=== PATIENT | female | born 1940 | race Caucasian/White ===

== ENCOUNTER 2019-07-30 20:14 | Observation (INO) ==
[2019-07-30] MEDS ORDERED: NITROGLYCERIN 2% OINT 1 INCH/GM PACK TOP STA (20:49)
[2019-07-30] MEDS ORDERED: MORPHINE 4 MG/1 ML VIAL IV STA (20:49)
[2019-07-30] MEDS ORDERED: ASPIRIN 325 MG TABLET PO STA (20:49)
[2019-07-30] MEDS ORDERED: ONDANSETRON 4 MG/2 ML VIAL IV STA (20:49)
[2019-07-30 20:59] LABS: Basophils % 0.5 % (0.0-0.8); Eosinophils # 0.1 10*3/uL (0.0-0.87); Eosinophils % 1.8 % (0.00-10.9); Hemoglobin 12.6 GM/DL (12.0-16.0); Immature Granulocytes % 0.2 %; Immature Granulocytes Absolute 0.01 #; Lymphocytes # 1.7 10*3/uL (1.4-4.0); Lymphocytes % 28.4 % (21.3-54.2); Mean Corpuscular HGB Conc 32.3 GM/DL (32-36); Mean Platelet Volume 10.7 FL (9.6-12.0); Monocytes % 7.5 % (1.7-12.7); Neutrophils % 61.6 % (38.7-73.9); Platelet Count 228 T/CUMM (130-400); Red Blood Count 3.94 MC/CUMM (3.8-5.5); Red Cell Distribution Width 14.3 % (9.3-17.3)
[2019-07-30 21:06] LABS: PT Patient Result 10.6 SECS (9.6-12.2)
[2019-07-30 21:20] LABS: Alanine Aminotransferase 9 U/L (13-56); Albumin 3.4 G/DL (3.4-5.0); Alkaline Phosphatase 125 U/L (45-117); Aspartate Amino Transferase < 3 U/L (0-37); Blood Urea Nitrogen 18 MG/DL (7-18); Calcium 8.9 MG/DL (8.5-10.1); Estimated Glom Filtration Rate 81 ML/MIN; Glucose 103 MG/DL (74-106); Osmolality,Calculated 280.4 MOS/KG (273-304); Total Protein 6.5 G/DL (6.4-8.3)
[2019-07-30] MEDS ORDERED: MORPHINE 4 MG/1 ML VIAL IV PRN (22:28)
[2019-07-30] MEDS ORDERED: ONDANSETRON 4 MG/2 ML VIAL IV PRN (22:28)
[2019-07-30] MEDS ORDERED: ENOXAPARIN 40 MG/0.4 ML SYRINGE SUBCUT SCH (22:30)
[2019-07-30 23:10] LABS: Risk Ratio 3.7; VLDL CHOLESTEROL 33.2 MG/DL
[2019-07-31] MEDS: NITROGLYCERIN 2% OINT 1 INCH/GM PACK TOP SCH ×3 (00:32→12:32)
[2019-07-31] MEDS: dilTIAZem Drip 125 MG/125 ML PREMIX IV SCH (01:14)
[2019-07-31] MEDS ORDERED: ASPIRIN EC 325 MG TABLET PO SCH (09:00)
[2019-07-31] MEDS: METOPROLOL SUCCINATE XL 50 MG TABLET PO SCH (12:32)
[2019-07-31] MEDS: ENOXAPARIN 60 MG/0.6 ML SYRINGE SUBCUT SCH (15:23)
[2019-07-31] MEDS ORDERED: ATORVASTATIN 40 MG TABLET PO SCH (21:00)
[2019-08-01] MEDS: ENOXAPARIN 60 MG/0.6 ML SYRINGE SUBCUT SCH (03:31)
[2019-08-01] MEDS: dilTIAZem Drip 125 MG/125 ML PREMIX IV SCH (08:50)
[2019-08-01] MEDS: METOPROLOL SUCCINATE XL 50 MG TABLET PO SCH (08:51)
[2019-08-01] MEDS ORDERED: ASPIRIN EC 81 MG TABLET PO SCH (09:00)
[2019-08-01 12:10] VITALS: BP 136/69
== END 2019-08-01 13:30 | disposition home health service (06) ==
LOC: EDUNIT# → EDBD → N.EDINP 20:14 → N.ED 20:14 → N.TELEN 22:49
PROVIDERS: ADMIT Internal Medicine; ATTEND Internal Medicine

== ENCOUNTER 2020-10-29 11:37 | Inpatient (IN) ==
[2020-10-29 12:39] LABS: Basophils % 0.3 % (0.0-0.8); Eosinophils % 0.3 % (0.00-10.9); Hemoglobin 13.6 GM/DL (12.0-16.0); Immature Granulocytes % 0.4 %; Immature Granulocytes Absolute 0.04 #; Lymphocytes # 0.8 10*3/uL (1.4-4.0); Lymphocytes % 8.6 % (21.3-54.2); Mean Corpuscular HGB Conc 32.4 GM/DL (32-36); Mean Corpuscular Volume 100.5 FL (87-102); Mean Platelet Volume 11.1 FL (9.6-12.0); Monocytes % 6.6 % (1.7-12.7); Neutrophils % 83.8 % (38.7-73.9); Platelet Count 246 T/CUMM (130-400); Red Blood Count 4.18 MC/CUMM (3.8-5.5); White Blood Count 9.3 T/CUMM (4-12)
[2020-10-29 13:05] LABS: Bilirubin,Total 1.1 MG/DL (0.2-1.0); Calcium 9.6 MG/DL (8.5-10.1); Osmolality,Calculated 281.7 MOS/KG (273-304); Potassium 4.2 MMOL/L (3.5-5.1); Total Protein 6.3 G/DL (6.4-8.3)
[2020-10-29] MEDS ORDERED: DEXTROSE 50% 25 GM/50 ML VIAL IV PRN (14:24)
[2020-10-29] MEDS ORDERED: GLUCAGON 1 MG VIAL IM PRN (14:24)
[2020-10-29] MEDS ORDERED: LORazepam 0.5 MG TABLET PO PRN (14:24)
[2020-10-29] MEDS ORDERED: cefTRIAXone 1,000 MG VIAL IM STA (14:30)
[2020-10-29] MEDS: DEXTROSE 5% NACL 0.45% 1,000 ML IV SCH (16:05)
[2020-10-29] MEDS: ENOXAPARIN 40 MG/0.4 ML SYRINGE SUBCUT SCH (16:05)
[2020-10-29 16:08] LABS: Bilirubin,Urine Negative (Negative); Blood, Urine Negative (Negative); Glucose,Urine (UA) 50 mg/dL (Negative); Ketones,Urine 20 mg/dL (Negative); Mucus,Urine Many /LPF (Occasional); Nitrite,Urine Negative (Negative); Protein,Urine 30 MG/DL; RBC,Urine 31 /HPF (0-4); Squamous Epithelial Cell,Urine Occasional /HPF (0-10); Urine Appearance CLEAR (Clear); Urine Color Amber (Yellow); Urine Specific Gravity 1.032 (1.001-1.035); Urine Urobilinogen < 2.0 EU/DL (0.2-1.0); WBC,Urine 2 /HPF (0-6)
[2020-10-29] MEDS: GABAPENTIN 100 MG CAPSULE PO SCH (17:14)
[2020-10-29] MEDS: CARBIDOPA/LEVODOPA 25-100 MG TABLET PO SCH ×3 (18:00→23:01)
[2020-10-29] MEDS ORDERED: METOPROLOL SUCCINATE XL 50 MG TABLET PO SCH (18:30)
[2020-10-29] MEDS: QUEtiapine 25 MG TABLET PO SCH (20:58)
[2020-10-29] MEDS: ALPRAZolam 0.25 MG TABLET PO SCH (20:58)
[2020-10-30] MEDS: DEXTROSE 5% NACL 0.45% 1,000 ML IV SCH ×2 (06:07→19:08)
[2020-10-30 06:08] LABS: Basophils % 0.3 % (0.0-0.8); Eosinophils # 0.1 10*3/uL (0.0-0.87); Eosinophils % 1.6 % (0.00-10.9); Hematocrit 37.4 VOL% (35.7-47.0); Hemoglobin 12.2 GM/DL (12.0-16.0); Immature Granulocytes % 0.3 %; Immature Granulocytes Absolute 0.02 #; Lymphocytes # 1.2 10*3/uL (1.4-4.0); Lymphocytes % 16.9 % (21.3-54.2); Mean Corpuscular HGB Conc 32.6 GM/DL (32-36); Mean Corpuscular Volume 100.3 FL (87-102); Mean Platelet Volume 11.9 FL (9.6-12.0); Monocytes % 8.2 % (1.7-12.7); Neutrophils % 72.7 % (38.7-73.9); Platelet Count 200 T/CUMM (130-400); Red Blood Count 3.73 MC/CUMM (3.8-5.5); Red Cell Distribution Width 13.9 % (9.3-17.3); White Blood Count 6.9 T/CUMM (4-12)
[2020-10-30] MEDS: CARBIDOPA/LEVODOPA 25-100 MG TABLET PO SCH ×5 (06:19→22:34)
[2020-10-30] MEDS: GABAPENTIN 100 MG CAPSULE PO SCH ×3 (06:19→18:43)
[2020-10-30 06:38] LABS: Calcium 8.8 MG/DL (8.5-10.1); Osmolality,Calculated 285.4 MOS/KG (273-304); Potassium 3.2 MMOL/L (3.5-5.1); Thyroid Stimulating Hormone 0.787 uIU/ml (0.358-3.74)
[2020-10-30] MEDS: QUEtiapine 25 MG TABLET PO SCH ×2 (09:59→22:34)
[2020-10-30] MEDS: ALPRAZolam 0.25 MG TABLET PO SCH ×2 (09:59→22:34)
[2020-10-30] MEDS: ASPIRIN EC 81 MG TABLET PO SCH (09:59)
[2020-10-30] MEDS: CLOPIDOGREL 75 MG TABLET PO SCH (09:59)
[2020-10-30] MEDS: POTASSIUM CHLORIDE RIDER 10 MEQ in PREMIX 1 EACH IV PRN ×4 (10:17→13:30)
[2020-10-30] MEDS: ENOXAPARIN 40 MG/0.4 ML SYRINGE SUBCUT SCH (14:31)
[2020-10-30] MEDS: METOPROLOL TARTRATE 25 MG TABLET PO SCH (22:33)
[2020-10-31] MEDS: CARBIDOPA/LEVODOPA 25-100 MG TABLET PO SCH ×6 (03:23→20:46)
[2020-10-31] MEDS: GABAPENTIN 100 MG CAPSULE PO SCH ×3 (05:55→15:14)
[2020-10-31 06:11] LABS: Calcium 8.5 MG/DL (8.5-10.1); Osmolality,Calculated 279.8 MOS/KG (273-304); Potassium 3.5 MMOL/L (3.5-5.1)
[2020-10-31 07:42] LABS: Basophils % 0.2 % (0.0-0.8); Eosinophils # 0.1 10*3/uL (0.0-0.87); Eosinophils % 1.1 % (0.00-10.9); Hematocrit 37.3 VOL% (35.7-47.0); Immature Granulocytes % 0.3 %; Immature Granulocytes Absolute 0.03 #; Lymphocytes # 0.8 10*3/uL (1.4-4.0); Lymphocytes % 8.9 % (21.3-54.2); Mean Corpuscular HGB Conc 32.2 GM/DL (32-36); Mean Corpuscular Volume 101.1 FL (87-102); Mean Platelet Volume 12.7 FL (9.6-12.0); Monocytes % 4.7 % (1.7-12.7); Neutrophils % 84.8 % (38.7-73.9); Platelet Count 179 T/CUMM (130-400); Red Blood Count 3.69 MC/CUMM (3.8-5.5); White Blood Count 9.1 T/CUMM (4-12)
[2020-10-31] MEDS: QUEtiapine 25 MG TABLET PO SCH (09:06)
[2020-10-31] MEDS: CLOPIDOGREL 75 MG TABLET PO SCH (09:06)
[2020-10-31] MEDS: ASPIRIN EC 81 MG TABLET PO SCH (09:06)
[2020-10-31] MEDS: METOPROLOL TARTRATE 25 MG TABLET PO SCH ×2 (09:06→20:47)
[2020-10-31] MEDS: ALPRAZolam 0.25 MG TABLET PO SCH (09:20)
[2020-10-31] MEDS: DEXTROSE 5% NACL 0.45% 1,000 ML IV SCH ×2 (10:19→22:37)
[2020-10-31] MEDS: ENOXAPARIN 40 MG/0.4 ML SYRINGE SUBCUT SCH (13:34)
[2020-11-01] MEDS: GABAPENTIN 100 MG CAPSULE PO SCH ×3 (05:37→15:15)
[2020-11-01 06:41] LABS: Alanine Aminotransferase 25 U/L (13-56); Albumin 2.5 G/DL (3.4-5.0); Alkaline Phosphatase 101 U/L (45-117); Aspartate Amino Transferase 28 U/L (0-37); Blood Urea Nitrogen 17 MG/DL (7-18); Calcium 8.6 MG/DL (8.5-10.1); Carbon Dioxide 23 MMOL/L (21-32); Estimated Glom Filtration Rate 95 ML/MIN; Glucose 150 MG/DL (74-106); HDL Cholesterol < 10 MG/DL (40-60); Osmolality,Calculated 272.2 MOS/KG (273-304); Potassium 3.3 MMOL/L (3.5-5.1); Sodium 134 MMOL/L (136-145); Total Protein 5.6 G/DL (6.4-8.3); Triglycerides 122 MG/DL (2-150); VLDL CHOLESTEROL 24.4 MG/DL
[2020-11-01] MEDS: METOPROLOL TARTRATE 25 MG TABLET PO SCH ×2 (08:20→21:23)
[2020-11-01] MEDS: CLOPIDOGREL 75 MG TABLET PO SCH (08:20)
[2020-11-01] MEDS: ASPIRIN EC 81 MG TABLET PO SCH (08:21)
[2020-11-01] MEDS: CARBIDOPA/LEVODOPA 25-100 MG TABLET PO SCH ×4 (08:21→21:23)
[2020-11-01] MEDS: DEXTROSE 5% NACL 0.45% 1,000 ML IV SCH (11:51)
[2020-11-01] MEDS: POTASSIUM CHLORIDE 20 MEQ TABLET PO PRN ×3 (17:09→21:22)
[2020-11-01] MEDS: ENOXAPARIN 40 MG/0.4 ML SYRINGE SUBCUT SCH (21:22)
[2020-11-02] MEDS: DEXTROSE 5% NACL 0.45% 1,000 ML IV SCH ×2 (00:34→16:36)
[2020-11-02] MEDS: GABAPENTIN 100 MG CAPSULE PO SCH (05:40)
[2020-11-02 07:00] LABS: Basophils % 0.4 % (0.0-0.8); Eosinophils # 0.3 10*3/uL (0.0-0.87); Eosinophils % 3.4 % (0.00-10.9); Hematocrit 32.5 VOL% (35.7-47.0); Immature Granulocytes % 0.4 %; Immature Granulocytes Absolute 0.03 #; Lymphocytes # 1.2 10*3/uL (1.4-4.0); Mean Corpuscular HGB Conc 33.8 GM/DL (32-36); Mean Corpuscular Volume 97.3 FL (87-102); Mean Platelet Volume 12.7 FL (9.6-12.0); Monocytes % 6.9 % (1.7-12.7); Neutrophils % 72.9 % (38.7-73.9); Platelet Count 160 T/CUMM (130-400); Red Blood Count 3.34 MC/CUMM (3.8-5.5); Red Cell Distribution Width 14.1 % (9.3-17.3); White Blood Count 7.4 T/CUMM (4-12)
[2020-11-02 07:24] LABS: Calcium 8.1 MG/DL (8.5-10.1); Osmolality,Calculated 275.5 MOS/KG (273-304); Potassium 3.9 MMOL/L (3.5-5.1)
[2020-11-02] MEDS: METOPROLOL TARTRATE 25 MG TABLET PO SCH ×2 (09:31→21:25)
[2020-11-02] MEDS: ASPIRIN EC 81 MG TABLET PO SCH (09:32)
[2020-11-02] MEDS: CARBIDOPA/LEVODOPA 25-100 MG TABLET PO SCH ×3 (09:32→21:24)
[2020-11-02] MEDS: CLOPIDOGREL 75 MG TABLET PO SCH (09:32)
[2020-11-02] MEDS: ENOXAPARIN 40 MG/0.4 ML SYRINGE SUBCUT SCH (21:25)
[2020-11-02] MEDS: ENTACAPONE 200 MG TABLET PO SCH (21:27)
[2020-11-02] MEDS: ALPRAZolam 0.25 MG TABLET PO SCH (21:27)
[2020-11-03] MEDS: DEXTROSE 5% NACL 0.45% 1,000 ML IV SCH ×2 (03:17→16:28)
[2020-11-03 06:54] LABS: Basophils % 0.5 % (0.0-0.8); Eosinophils # 0.2 10*3/uL (0.0-0.87); Eosinophils % 2.3 % (0.00-10.9); Hematocrit 34.3 VOL% (35.7-47.0); Hemoglobin 11.4 GM/DL (12.0-16.0); Immature Granulocytes % 0.8 %; Immature Granulocytes Absolute 0.06 #; Lymphocytes # 1.4 10*3/uL (1.4-4.0); Lymphocytes % 18.4 % (21.3-54.2); Mean Corpuscular HGB Conc 33.2 GM/DL (32-36); Mean Corpuscular Volume 97.7 FL (87-102); Mean Platelet Volume 12.9 FL (9.6-12.0); Monocytes % 6.3 % (1.7-12.7); Neutrophils % 71.7 % (38.7-73.9); Platelet Count 167 T/CUMM (130-400); Red Blood Count 3.51 MC/CUMM (3.8-5.5); Red Cell Distribution Width 14.1 % (9.3-17.3); White Blood Count 7.8 T/CUMM (4-12)
[2020-11-03 07:15] LABS: Calcium 8.8 MG/DL (8.5-10.1); Osmolality,Calculated 269.8 MOS/KG (273-304); Potassium 3.5 MMOL/L (3.5-5.1)
[2020-11-03] MEDS: CLOPIDOGREL 75 MG TABLET PO SCH (08:36)
[2020-11-03] MEDS: ASPIRIN EC 81 MG TABLET PO SCH (08:36)
[2020-11-03] MEDS: CARBIDOPA/LEVODOPA 25-100 MG TABLET PO SCH ×3 (08:36→21:01)
[2020-11-03] MEDS: METOPROLOL TARTRATE 25 MG TABLET PO SCH ×2 (08:37→21:01)
[2020-11-03] MEDS: ENTACAPONE 200 MG TABLET PO SCH ×3 (08:45→21:01)
[2020-11-03] MEDS: ALPRAZolam 0.25 MG TABLET PO SCH ×2 (08:45→21:02)
[2020-11-03] MEDS: ENOXAPARIN 40 MG/0.4 ML SYRINGE SUBCUT SCH (21:05)
[2020-11-04] MEDS: DEXTROSE 5% NACL 0.45% 1,000 ML IV SCH (06:29)
[2020-11-04] MEDS: ASPIRIN EC 81 MG TABLET PO SCH (08:10)
[2020-11-04] MEDS: CLOPIDOGREL 75 MG TABLET PO SCH (08:10)
[2020-11-04] MEDS: ALPRAZolam 0.25 MG TABLET PO SCH (08:10)
[2020-11-04] MEDS: CARBIDOPA/LEVODOPA 25-100 MG TABLET PO SCH ×3 (08:11→21:37)
[2020-11-04] MEDS: METOPROLOL TARTRATE 25 MG TABLET PO SCH ×2 (08:11→21:37)
[2020-11-04] MEDS: ENTACAPONE 200 MG TABLET PO SCH ×3 (08:12→21:36)
[2020-11-04] MEDS ORDERED: PARoxetine 10 MG TABLET PO SCH (09:00)
[2020-11-04] MEDS ORDERED: TUBERCULIN SKIN TEST 0.1 ML SYRINGE INTRADERM ONE (17:00)
[2020-11-04] MEDS: ENOXAPARIN 40 MG/0.4 ML SYRINGE SUBCUT SCH (21:37)
[2020-11-05 06:17] LABS: Basophils % 0.3 % (0.0-0.8); Eosinophils # 0.1 10*3/uL (0.0-0.87); Eosinophils % 1.9 % (0.00-10.9); Hematocrit 35.4 VOL% (35.7-47.0); Hemoglobin 11.8 GM/DL (12.0-16.0); Immature Granulocytes % 0.8 %; Immature Granulocytes Absolute 0.05 #; Lymphocytes # 0.9 10*3/uL (1.4-4.0); Lymphocytes % 14.4 % (21.3-54.2); Mean Corpuscular HGB Conc 33.3 GM/DL (32-36); Mean Corpuscular Volume 98.3 FL (87-102); Monocytes % 7.8 % (1.7-12.7); Neutrophils % 74.8 % (38.7-73.9); Platelet Count 202 T/CUMM (130-400); Red Cell Distribution Width 14.5 % (9.3-17.3); White Blood Count 6.3 T/CUMM (4-12)
[2020-11-05 06:21] LABS: Calcium 8.9 MG/DL (8.5-10.1); Osmolality,Calculated 270.8 MOS/KG (273-304); Potassium 3.5 MMOL/L (3.5-5.1)
[2020-11-05] MEDS: METOPROLOL TARTRATE 25 MG TABLET PO SCH ×2 (08:44→21:36)
[2020-11-05] MEDS: ASPIRIN EC 81 MG TABLET PO SCH (08:44)
[2020-11-05] MEDS: CARBIDOPA/LEVODOPA 25-100 MG TABLET PO SCH ×3 (08:44→21:36)
[2020-11-05] MEDS: ENTACAPONE 200 MG TABLET PO SCH ×3 (08:44→21:35)
[2020-11-05] MEDS: RASAGILINE 0.5 MG TABLET PO SCH (08:44)
[2020-11-05] MEDS: CLOPIDOGREL 75 MG TABLET PO SCH (08:44)
[2020-11-05] MEDS: DEXTROSE 5% NACL 0.45% 1,000 ML IV SCH ×2 (08:44→10:22)
[2020-11-05] MEDS ORDERED: PARoxetine 10 MG TABLET PO SCH (09:00)
[2020-11-05] MEDS: ENOXAPARIN 40 MG/0.4 ML SYRINGE SUBCUT SCH (21:36)
[2020-11-06] MEDS: DEXTROSE 5% NACL 0.45% 1,000 ML IV SCH ×2 (01:45→16:34)
[2020-11-06 06:18] LABS: Basophils % 0.2 % (0.0-0.8); Eosinophils # 0.1 10*3/uL (0.0-0.87); Eosinophils % 1.1 % (0.00-10.9); Hematocrit 31.9 VOL% (35.7-47.0); Hemoglobin 10.5 GM/DL (12.0-16.0); Immature Granulocytes % 0.4 %; Immature Granulocytes Absolute 0.02 #; Lymphocytes # 0.5 10*3/uL (1.4-4.0); Lymphocytes % 9.3 % (21.3-54.2); Mean Corpuscular HGB Conc 32.9 GM/DL (32-36); Mean Corpuscular Volume 98.8 FL (87-102); Mean Platelet Volume 11.4 FL (9.6-12.0); Monocytes % 10.7 % (1.7-12.7); Neutrophils % 78.3 % (38.7-73.9); Platelet Count 182 T/CUMM (130-400); Red Blood Count 3.23 MC/CUMM (3.8-5.5); Red Cell Distribution Width 14.8 % (9.3-17.3); White Blood Count 5.6 T/CUMM (4-12)
[2020-11-06 06:41] LABS: Calcium 8.2 MG/DL (8.5-10.1); Osmolality,Calculated 269.1 MOS/KG (273-304); Potassium 4.2 MMOL/L (3.5-5.1)
[2020-11-06] MEDS: ASPIRIN EC 81 MG TABLET PO SCH (09:01)
[2020-11-06] MEDS: ENTACAPONE 200 MG TABLET PO SCH ×3 (09:01→20:16)
[2020-11-06] MEDS: METOPROLOL TARTRATE 25 MG TABLET PO SCH ×2 (09:01→20:14)
[2020-11-06] MEDS: RASAGILINE 0.5 MG TABLET PO SCH (09:02)
[2020-11-06] MEDS: CARBIDOPA/LEVODOPA 25-100 MG TABLET PO SCH ×3 (09:03→20:14)
[2020-11-06] MEDS ORDERED: LACTULOSE 20 GM/30 ML UDCUP ONE (19:31)
[2020-11-06] MEDS: LACTULOSE 20 GM/30 ML UDCUP NG SCH (20:13)
[2020-11-06] MEDS: ENOXAPARIN 40 MG/0.4 ML SYRINGE SUBCUT SCH (20:16)
[2020-11-07] MEDS: DEXTROSE 5% NACL 0.45% 1,000 ML IV SCH ×2 (03:10→18:21)
[2020-11-07 07:40] LABS: Basophils % 0.4 % (0.0-0.8); Eosinophils # 0.1 10*3/uL (0.0-0.87); Eosinophils % 1.5 % (0.00-10.9); Hematocrit 31.1 VOL% (35.7-47.0); Hemoglobin 10.4 GM/DL (12.0-16.0); Immature Granulocytes % 0.5 %; Immature Granulocytes Absolute 0.03 #; Lymphocytes # 0.6 10*3/uL (1.4-4.0); Lymphocytes % 10.7 % (21.3-54.2); Mean Corpuscular HGB Conc 33.4 GM/DL (32-36); Mean Corpuscular Volume 98.1 FL (87-102); Mean Platelet Volume 10.8 FL (9.6-12.0); Monocytes % 10.3 % (1.7-12.7); Neutrophils % 76.6 % (38.7-73.9); Platelet Count 187 T/CUMM (130-400); Red Blood Count 3.17 MC/CUMM (3.8-5.5); Red Cell Distribution Width 15.1 % (9.3-17.3); White Blood Count 5.5 T/CUMM (4-12)
[2020-11-07 08:05] LABS: Calcium 8.3 MG/DL (8.5-10.1); Osmolality,Calculated 275.5 MOS/KG (273-304); Potassium 3.6 MMOL/L (3.5-5.1)
[2020-11-07] MEDS: LACTULOSE 20 GM/30 ML UDCUP NG SCH ×3 (09:09→20:28)
[2020-11-07] MEDS: ENTACAPONE 200 MG TABLET PO SCH ×3 (09:09→20:28)
[2020-11-07] MEDS: METOPROLOL TARTRATE 25 MG TABLET PO SCH ×2 (09:09→20:28)
[2020-11-07] MEDS: CARBIDOPA/LEVODOPA 25-100 MG TABLET PO SCH ×3 (09:10→20:28)
[2020-11-07] MEDS: ASPIRIN EC 81 MG TABLET PO SCH (09:10)
[2020-11-07] MEDS: ENOXAPARIN 40 MG/0.4 ML SYRINGE SUBCUT SCH (20:28)
[2020-11-08 06:56] LABS: Basophils % 0.3 % (0.0-0.8); Eosinophils # 0.2 10*3/uL (0.0-0.87); Eosinophils % 2.3 % (0.00-10.9); Hemoglobin 10.6 GM/DL (12.0-16.0); Immature Granulocytes % 0.5 %; Immature Granulocytes Absolute 0.04 #; Lymphocytes # 0.7 10*3/uL (1.4-4.0); Lymphocytes % 8.9 % (21.3-54.2); Mean Corpuscular HGB Conc 32.1 GM/DL (32-36); Mean Corpuscular Volume 100.6 FL (87-102); Mean Platelet Volume 11.1 FL (9.6-12.0); Monocytes % 6.8 % (1.7-12.7); Neutrophils % 81.2 % (38.7-73.9); Platelet Count 221 T/CUMM (130-400); Red Blood Count 3.28 MC/CUMM (3.8-5.5); Red Cell Distribution Width 15.2 % (9.3-17.3); White Blood Count 7.3 T/CUMM (4-12)
[2020-11-08 07:23] LABS: Calcium 8.5 MG/DL (8.5-10.1); Osmolality,Calculated 273.7 MOS/KG (273-304); Potassium 3.7 MMOL/L (3.5-5.1)
[2020-11-08] MEDS: ASPIRIN EC 81 MG TABLET PO SCH (09:22)
[2020-11-08] MEDS: METOPROLOL TARTRATE 25 MG TABLET PO SCH ×2 (09:23→21:15)
[2020-11-08] MEDS: CARBIDOPA/LEVODOPA 25-100 MG TABLET PO SCH ×3 (09:23→21:15)
[2020-11-08] MEDS: LACTULOSE 20 GM/30 ML UDCUP NG SCH ×3 (09:24→21:15)
[2020-11-08] MEDS: ENTACAPONE 200 MG TABLET PO SCH ×3 (09:30→21:16)
[2020-11-08] MEDS: DESITIN 4OZ/NYSTATIN 15 GRAM MIXTURE PASTE TOP SCH ×2 (19:27→21:16)
[2020-11-08] MEDS: DEXTROSE 5% NACL 0.45% 1,000 ML IV SCH (19:40)
[2020-11-08] MEDS: ENOXAPARIN 40 MG/0.4 ML SYRINGE SUBCUT SCH (21:16)
[2020-11-09 07:13] LABS: Basophils % 0.6 % (0.0-0.8); Eosinophils # 0.2 10*3/uL (0.0-0.87); Eosinophils % 2.6 % (0.00-10.9); Hematocrit 33.7 VOL% (35.7-47.0); Hemoglobin 10.9 GM/DL (12.0-16.0); Immature Granulocytes % 0.5 %; Immature Granulocytes Absolute 0.03 #; Lymphocytes # 0.8 10*3/uL (1.4-4.0); Lymphocytes % 12.2 % (21.3-54.2); Mean Corpuscular HGB Conc 32.3 GM/DL (32-36); Mean Corpuscular Volume 101.2 FL (87-102); Mean Platelet Volume 11.1 FL (9.6-12.0); Monocytes % 6.6 % (1.7-12.7); Neutrophils % 77.5 % (38.7-73.9); Platelet Count 255 T/CUMM (130-400); Red Blood Count 3.33 MC/CUMM (3.8-5.5); White Blood Count 6.5 T/CUMM (4-12)
[2020-11-09 07:42] LABS: Albumin 2.3 G/DL (3.4-5.0); Bilirubin,Total 0.7 MG/DL (0.2-1.0); Calcium 8.4 MG/DL (8.5-10.1); Osmolality,Calculated 278.4 MOS/KG (273-304); Potassium 3.7 MMOL/L (3.5-5.1)
[2020-11-09] MEDS: LACTULOSE 20 GM/30 ML UDCUP NG SCH ×4 (08:50→22:02)
[2020-11-09] MEDS: ASPIRIN EC 81 MG TABLET PO SCH ×2 (08:50→18:01)
[2020-11-09] MEDS: METOPROLOL TARTRATE 25 MG TABLET PO SCH ×3 (08:50→22:02)
[2020-11-09] MEDS: ENTACAPONE 200 MG TABLET PO SCH ×4 (08:52→22:02)
[2020-11-09] MEDS: CARBIDOPA/LEVODOPA 25-100 MG TABLET PO SCH ×4 (08:52→22:02)
[2020-11-09] MEDS: DESITIN 4OZ/NYSTATIN 15 GRAM MIXTURE PASTE TOP SCH ×2 (08:52→22:02)
[2020-11-09] MEDS ORDERED: LIDOCAINE 2% VISCOUS 100 ML BOTTLE ONE (12:09)
[2020-11-09] MEDS: DEXTROSE 5% NACL 0.45% 1,000 ML IV SCH ×2 (21:58)
[2020-11-09] MEDS: ENOXAPARIN 40 MG/0.4 ML SYRINGE SUBCUT SCH (22:02)
[2020-11-10] MEDS: ASPIRIN EC 81 MG TABLET PO SCH (09:21)
[2020-11-10] MEDS: LACTULOSE 20 GM/30 ML UDCUP NG SCH (09:22)
[2020-11-10] MEDS: METOPROLOL TARTRATE 25 MG TABLET PO SCH ×2 (09:22→20:42)
[2020-11-10] MEDS: CEFUROXIME 500 MG TABLET PO SCH ×2 (09:22→20:41)
[2020-11-10] MEDS: DESITIN 4OZ/NYSTATIN 15 GRAM MIXTURE PASTE TOP SCH ×2 (09:23→20:42)
[2020-11-10] MEDS: ENTACAPONE 200 MG TABLET PO SCH ×4 (11:02→20:42)
[2020-11-10] MEDS: CARBIDOPA/LEVODOPA 25-250 MG TABLET PO SCH ×4 (11:03→20:42)
[2020-11-10] MEDS: DEXTROSE 5% NACL 0.45% 1,000 ML IV SCH (14:10)
[2020-11-10] MEDS: ENOXAPARIN 40 MG/0.4 ML SYRINGE SUBCUT SCH (20:40)
[2020-11-11] MEDS: DEXTROSE 5% NACL 0.45% 1,000 ML IV SCH ×3 (00:40→15:11)
[2020-11-11 04:58] LABS: Basophils % 0.6 % (0.0-0.8); Eosinophils # 0.1 10*3/uL (0.0-0.87); Eosinophils % 1.9 % (0.00-10.9); Hematocrit 33.6 VOL% (35.7-47.0); Hemoglobin 10.6 GM/DL (12.0-16.0); Immature Granulocytes % 0.3 %; Immature Granulocytes Absolute 0.02 #; Lymphocytes # 1.2 10*3/uL (1.4-4.0); Lymphocytes % 17.8 % (21.3-54.2); Mean Corpuscular HGB Conc 31.5 GM/DL (32-36); Mean Corpuscular Volume 102.1 FL (87-102); Mean Platelet Volume 10.4 FL (9.6-12.0); Monocytes % 6.7 % (1.7-12.7); Neutrophils % 72.7 % (38.7-73.9); Platelet Count 279 T/CUMM (130-400); Red Blood Count 3.29 MC/CUMM (3.8-5.5); Red Cell Distribution Width 15.1 % (9.3-17.3); White Blood Count 6.7 T/CUMM (4-12)
[2020-11-11 05:12] LABS: PT Patient Result 11.1 SECS (9.8-11.9)
[2020-11-11 05:32] LABS: Alanine Aminotransferase < 9 U/L (13-56); Albumin 2.3 G/DL (3.4-5.0); Alkaline Phosphatase 65 U/L (45-117); Aspartate Amino Transferase 5 U/L (0-37); Blood Urea Nitrogen 12 MG/DL (7-18); Calcium 8.6 MG/DL (8.5-10.1); Carbon Dioxide 26 MMOL/L (21-32); Estimated Glom Filtration Rate 95 ML/MIN; Glucose 93 MG/DL (74-106); Osmolality,Calculated 272.8 MOS/KG (273-304); Potassium 3.6 MMOL/L (3.5-5.1); Sodium 137 MMOL/L (136-145); Total Protein 5.7 G/DL (6.4-8.9)
[2020-11-11] MEDS ORDERED: ceFAZolin 1,000 MG in SYRINGE 1 EACH IV ONE (08:00)
[2020-11-11] MEDS ORDERED: LACTATED RINGERS 1,000 ML IV SCH (08:00)
[2020-11-11] MEDS: CARBIDOPA/LEVODOPA 25-250 MG TABLET PO SCH ×5 (09:16→20:33)
[2020-11-11] MEDS: METOPROLOL TARTRATE 25 MG TABLET PO SCH ×2 (09:16→20:33)
[2020-11-11] MEDS: CEFUROXIME 500 MG TABLET PO SCH ×2 (09:16→20:33)
[2020-11-11] MEDS: ENTACAPONE 200 MG TABLET PO SCH ×6 (09:16→20:34)
[2020-11-11] MEDS: DESITIN 4OZ/NYSTATIN 15 GRAM MIXTURE PASTE TOP SCH ×2 (09:17→20:34)
[2020-11-11] MEDS: ASPIRIN EC 81 MG TABLET PO SCH (09:17)
[2020-11-11] MEDS ORDERED: QUEtiapine 25 MG TABLET PO PRN (12:34)
[2020-11-11] MEDS: ENOXAPARIN 40 MG/0.4 ML SYRINGE SUBCUT SCH (20:34)
[2020-11-12] MEDS: DEXTROSE 5% NACL 0.45% 1,000 ML IV SCH ×2 (03:20→04:32)
[2020-11-12 06:04] LABS: PT Patient Result 11.1 SECS (9.8-11.9)
[2020-11-12] MEDS ORDERED: ceFAZolin 1,000 MG in SYRINGE 1 EACH IV ONE (08:00)
[2020-11-12] MEDS: CARBIDOPA/LEVODOPA 25-250 MG TABLET PO SCH ×5 (08:53→21:36)
[2020-11-12] MEDS: METOPROLOL TARTRATE 25 MG TABLET PO SCH ×2 (08:53→21:36)
[2020-11-12] MEDS: CEFUROXIME 500 MG TABLET PO SCH (08:53)
[2020-11-12] MEDS: ASPIRIN EC 81 MG TABLET PO SCH (08:53)
[2020-11-12] MEDS: ENTACAPONE 200 MG TABLET PO SCH ×5 (08:53→21:36)
[2020-11-12] MEDS: DESITIN 4OZ/NYSTATIN 15 GRAM MIXTURE PASTE TOP SCH ×2 (08:54→21:40)
[2020-11-12] MEDS: LACTATED RINGERS 1,000 ML IV SCH (10:07)
[2020-11-12] MEDS ORDERED: LIDOCAINE 2% 5 ML VIAL ONE (13:30)
[2020-11-12] MEDS ORDERED: propofoL 200 MG/20 ML VIAL IV ONE (13:30)
[2020-11-12] MEDS ORDERED: PHENYLEPHRINE 1 MG/10 ML SYRINGE IV ONE (13:30)
[2020-11-12] MEDS: ACETAMINOPHEN 325 MG/10.15 ML UDCUP PEG PRN (15:04)
[2020-11-12] MEDS: ENOXAPARIN 40 MG/0.4 ML SYRINGE SUBCUT SCH (21:40)
[2020-11-13] MEDS: DEXTROSE 5% NACL 0.45% 1,000 ML IV SCH ×2 (01:26→17:57)
[2020-11-13 06:00] LABS: Basophils % 0.4 % (0.0-0.8); Eosinophils # 0.2 10*3/uL (0.0-0.87); Eosinophils % 3.3 % (0.00-10.9); Hematocrit 32.4 VOL% (35.7-47.0); Hemoglobin 10.3 GM/DL (12.0-16.0); Immature Granulocytes % 0.4 %; Immature Granulocytes Absolute 0.03 #; Lymphocytes # 1.2 10*3/uL (1.4-4.0); Lymphocytes % 18.4 % (21.3-54.2); Mean Corpuscular HGB Conc 31.8 GM/DL (32-36); Mean Corpuscular Volume 102.5 FL (87-102); Mean Platelet Volume 10.3 FL (9.6-12.0); Monocytes % 4.8 % (1.7-12.7); Neutrophils % 72.7 % (38.7-73.9); Platelet Count 299 T/CUMM (130-400); Red Blood Count 3.16 MC/CUMM (3.8-5.5); Red Cell Distribution Width 15.1 % (9.3-17.3); White Blood Count 6.7 T/CUMM (4-12)
[2020-11-13 06:24] LABS: Alanine Aminotransferase < 9 U/L (13-56); Albumin 2.3 G/DL (3.4-5.0); Alkaline Phosphatase 64 U/L (45-117); Aspartate Amino Transferase 4 U/L (0-37); Blood Urea Nitrogen 9 MG/DL (7-18); Calcium 8.5 MG/DL (8.5-10.1); Carbon Dioxide 30 MMOL/L (21-32); Estimated Glom Filtration Rate 102 ML/MIN; Glucose 98 MG/DL (74-106); Osmolality,Calculated 271.8 MOS/KG (273-304); Potassium 3.2 MMOL/L (3.5-5.1); Sodium 137 MMOL/L (136-145); Total Protein 5.8 G/DL (5.0-7.5)
[2020-11-13] MEDS: POTASSIUM CHLORIDE RIDER 10 MEQ in PREMIX 1 EACH IV PRN (08:13)
[2020-11-13] MEDS: METOPROLOL TARTRATE 25 MG TABLET PO SCH ×3 (08:15→22:43)
[2020-11-13] MEDS: ASPIRIN EC 81 MG TABLET PO SCH (08:15)
[2020-11-13] MEDS: ENTACAPONE 200 MG TABLET PO SCH ×5 (08:16→21:29)
[2020-11-13] MEDS: DESITIN 4OZ/NYSTATIN 15 GRAM MIXTURE PASTE TOP SCH ×2 (08:16→21:30)
[2020-11-13] MEDS: CARBIDOPA/LEVODOPA 25-250 MG TABLET PO SCH ×5 (08:16→21:29)
[2020-11-13] MEDS: ACETAMINOPHEN 325 MG/10.15 ML UDCUP PEG PRN (08:16)
[2020-11-13] MEDS: LACTATED RINGERS 1,000 ML IV SCH (10:07)
[2020-11-13] MEDS: POTASSIUM CHLORIDE 20 MEQ/15 ML UDCUP PO PRN ×2 (11:18→16:28)
[2020-11-13] MEDS ORDERED: busPIRone 15 MG TABLET PO ONE (11:30)
[2020-11-13] MEDS ORDERED: LACTULOSE 20 GM/30 ML UDCUP PO PRN (15:55)
[2020-11-13] MEDS: ENOXAPARIN 40 MG/0.4 ML SYRINGE SUBCUT SCH (21:30)
[2020-11-14] MEDS ORDERED: SIMETHICONE CHEW 125 MG TABLET PO PRN (04:19)
[2020-11-14] MEDS ORDERED: busPIRone 15 MG TABLET PO PRN (05:29)
[2020-11-14 06:49] LABS: Calcium 8.9 MG/DL (8.5-10.1); Osmolality,Calculated 265.2 MOS/KG (273-304); Potassium 4.3 MMOL/L (3.5-5.1)
[2020-11-14] MEDS: ENTACAPONE 200 MG TABLET PO SCH ×2 (08:44→11:10)
[2020-11-14] MEDS: ASPIRIN EC 81 MG TABLET PO SCH (08:44)
[2020-11-14] MEDS: DESITIN 4OZ/NYSTATIN 15 GRAM MIXTURE PASTE TOP SCH (08:45)
[2020-11-14] MEDS: METOPROLOL TARTRATE 25 MG TABLET PO SCH (08:45)
[2020-11-14] MEDS: CARBIDOPA/LEVODOPA 25-250 MG TABLET PO SCH ×2 (08:45→11:10)
[2020-11-14] MEDS ORDERED: ALPRAZolam 0.25 MG TABLET PO PRN (10:13)
[2020-11-14 10:23] VITALS: BP 127/72
[2020-11-15] MEDS ORDERED: PARoxetine 10 MG TABLET PO SCH (09:00)
== END 2020-11-14 11:50 | DRG 56 ==
LOC: N.EDINP 11:37 → N.ED 11:37 → N.5E 15:51 → SUATTDRO 11-01 13:50
PROVIDERS: ADMIT Internal Medicine; ATTEND Internal Medicine
PROC: EGDWPEG (ICD-10-PCS; 2020-11-12 12:35)

== ENCOUNTER 2021-05-08 12:49 | Inpatient (IN) ==
[2021-05-08] MEDS ORDERED: HYDROmorphone 2 MG/1 ML VIAL IV STA (13:08)
[2021-05-08] MEDS ORDERED: ONDANSETRON 4 MG/2 ML VIAL IV STA (13:08)
[2021-05-08 13:23] LABS: Basophils % 0.6 % (0.0-0.8); Eosinophils # 0.1 10*3/uL (0.0-0.87); Eosinophils % 1.6 % (0.00-10.9); Hematocrit 41.5 VOL% (35.7-47.0); Hemoglobin 13.5 GM/DL (12.0-16.0); Immature Granulocytes % 0.3 %; Immature Granulocytes Absolute 0.02 #; Lymphocytes # 1.5 10*3/uL (1.4-4.0); Lymphocytes % 21.5 % (21.3-54.2); Mean Corpuscular HGB Conc 32.5 GM/DL (32-36); Mean Corpuscular Volume 100.5 FL (87-102); Mean Platelet Volume 10.3 FL (9.6-12.0); Monocytes % 5.7 % (1.7-12.7); Neutrophils % 70.3 % (38.7-73.9); Platelet Count 218 T/CUMM (130-400); Red Blood Count 4.13 MC/CUMM (3.8-5.5); Red Cell Distribution Width 13.4 % (9.3-17.3)
[2021-05-08 13:34] LABS: PT Patient Result 11.2 SECS (10.5-12.0); Partial Thromboplastin Time 22.5 SECS (23.9-33.8)
[2021-05-08 13:40] LABS: Osmolality,Calculated 277.5 MOS/KG (273-304); Potassium 4.2 MMOL/L (3.5-5.1)
[2021-05-08] MEDS ORDERED: DEXTROSE 50% 25 GM/50 ML VIAL IV PRN ×2 (14:13→14:39)
[2021-05-08] MEDS ORDERED: GLUCAGON 1 MG VIAL IM PRN ×2 (14:13→14:39)
[2021-05-08] MEDS ORDERED: DOCUSATE SODIUM 100 MG CAPSULE PO PRN (14:13)
[2021-05-08] MEDS ORDERED: ONDANSETRON 4 MG/2 ML VIAL IV PRN (14:13)
[2021-05-08 14:17] LABS: Bacteria,Urine Occasional /HPF (Few); Bilirubin,Urine Negative (Negative); Blood, Urine Negative (Negative); Glucose,Urine (UA) Negative (Negative); Hyaline Casts,Urine 1 /LPF (0-3); Ketones,Urine 5 mg/dL (Negative); Mucus,Urine Occasional /LPF (Occasional); Nitrite,Urine Negative (Negative); Protein,Urine Negative; RBC,Urine 3 /HPF (0-4); Squamous Epithelial Cell,Urine Occasional /HPF (0-10); Urine Appearance CLEAR (Clear); Urine Color Amber (Yellow); Urine Specific Gravity 1.017 (1.001-1.035); Urine Urobilinogen < 2.0 EU/DL (0.2-1.0)
[2021-05-08 14:44] LABS: Albumin 3.6 G/DL (3.4-5.0); Bilirubin,Total 0.5 MG/DL (0.20-1.00); Osmolality,Calculated 279.4 MOS/KG (273-304); Potassium 4.2 MMOL/L (3.5-5.1); Total Protein 6.7 G/DL (6.4-8.2)
[2021-05-08] MEDS: SODIUM CHLORIDE 0.9% 1,000 ML IV SCH (14:57)
[2021-05-08] MEDS: ENOXAPARIN 40 MG/0.4 ML SYRINGE SUBCUT SCH (14:57)
[2021-05-08] MEDS: HYDROmorphone 2 MG/1 ML VIAL IV PRN (17:22)
[2021-05-08] MEDS: METOPROLOL TARTRATE 25 MG TABLET PO SCH (22:03)
[2021-05-08] MEDS: ENTACAPONE 200 MG TABLET PO SCH (22:03)
[2021-05-08] MEDS: OLANZapine 2.5 MG TABLET PO SCH (22:03)
[2021-05-08] MEDS: CARBIDOPA/LEVODOPA 25-100 MG TABLET PO SCH (22:03)
[2021-05-08] MEDS: oxyCODONE/ACETAMINOPHEN 5-325 MG TABLET PO PRN (22:20)
[2021-05-09] MEDS: HYDROmorphone 2 MG/1 ML VIAL IV PRN ×2 (04:22→14:49)
[2021-05-09] MEDS: SODIUM CHLORIDE 0.9% 1,000 ML IV SCH ×3 (05:00→16:19)
[2021-05-09 05:36] LABS: Basophils % 0.5 % (0.0-0.8); Eosinophils # 0.1 10*3/uL (0.0-0.87); Eosinophils % 0.9 % (0.00-10.9); Hematocrit 37.3 VOL% (35.7-47.0); Hemoglobin 12.1 GM/DL (12.0-16.0); Immature Granulocytes % 0.3 %; Immature Granulocytes Absolute 0.02 #; Lymphocytes % 15.1 % (21.3-54.2); Mean Corpuscular HGB Conc 32.4 GM/DL (32-36); Mean Corpuscular Volume 100.5 FL (87-102); Mean Platelet Volume 11.1 FL (9.6-12.0); Monocytes % 5.1 % (1.7-12.7); Neutrophils % 78.1 % (38.7-73.9); Platelet Count 186 T/CUMM (130-400); Red Blood Count 3.71 MC/CUMM (3.8-5.5); Red Cell Distribution Width 13.5 % (9.3-17.3); White Blood Count 6.6 T/CUMM (4-12)
[2021-05-09 06:14] LABS: Calcium 8.3 MG/DL (8.5-10.1); Osmolality,Calculated 273.7 MOS/KG (273-304)
[2021-05-09] MEDS ORDERED: ROCURONIUM 50 MG/5 ML VIAL IV ONE (06:40)
[2021-05-09] MEDS ORDERED: SEVOFLURANE 1 UNIT/15 MINUTE INH ONE ×2 (06:40→08:26)
[2021-05-09] MEDS ORDERED: ETOMIDATE 40 MG/20 ML VIAL IV ONE (06:40)
[2021-05-09] MEDS ORDERED: KETAMINE 500 MG/10 ML VIAL ONE (06:40)
[2021-05-09] MEDS ORDERED: LIDOCAINE 2% 5 ML VIAL ONE (06:40)
[2021-05-09] MEDS ORDERED: fentaNYL 100 MCG/2 ML VIAL ONE (06:40)
[2021-05-09] MEDS ORDERED: GLYCOPYRROLATE 0.4 MG/2 ML VIAL ONE ×2 (06:42→07:54)
[2021-05-09] MEDS ORDERED: ceFAZolin 1,000 MG VIAL ONE (07:36)
[2021-05-09] MEDS ORDERED: NEOSTIGMINE 10 MG/10 ML VIAL ONE (07:54)
[2021-05-09] MEDS ORDERED: ACETAMINOPHEN INJ 1,000 MG/100 ML VIAL IV ONE (08:04)
[2021-05-09] MEDS: METOPROLOL TARTRATE 25 MG TABLET PO SCH ×2 (08:14→21:00)
[2021-05-09] MEDS: CARBIDOPA/LEVODOPA 25-100 MG TABLET PO SCH ×3 (08:14→14:48)
[2021-05-09] MEDS: ENTACAPONE 200 MG TABLET PO SCH ×4 (08:14→21:00)
[2021-05-09] MEDS: PANTOPRAZOLE 40 MG TABLET PO SCH ×2 (08:14→16:16)
[2021-05-09] MEDS ORDERED: LORazepam 0.5 MG TABLET PO PRN (10:31)
[2021-05-09] MEDS: PARoxetine 10 MG TABLET PO SCH ×2 (10:52→14:48)
[2021-05-09] MEDS: POLYETHYLENE GLYCOL POWDER 17 GM PACK PO SCH (10:52)
[2021-05-09] MEDS ORDERED: [UNRECOGNIZED DRUG - OTHER] PO SCH (11:00)
[2021-05-09] MEDS ORDERED: ENTACAPONE 200 MG TABLET PO SCH (13:00)
[2021-05-09] MEDS ORDERED: CARBIDOPA/LEVODOPA 25-100 MG TABLET PO SCH (13:00)
[2021-05-09] MEDS: ceFAZolin 2,000 MG/50 ML DUPLEX IV SCH ×2 (14:48→23:31)
[2021-05-09] MEDS: ENOXAPARIN 40 MG/0.4 ML SYRINGE SUBCUT SCH (14:48)
[2021-05-09] MEDS ORDERED: PARoxetine 10 MG TABLET PO SCH (15:00)
[2021-05-09] MEDS ORDERED: OLANZapine 2.5 MG TABLET PO SCH (21:00)
[2021-05-09] MEDS: CARBIDOPA/LEVODOPA CR 25-100 MG TABLET PO SCH (21:00)
[2021-05-09] MEDS: OLANZapine 2.5 MG TABLET PO SCH (21:00)
[2021-05-10] MEDS: SODIUM CHLORIDE 0.9% 1,000 ML IV SCH ×2 (02:14→07:38)
[2021-05-10 05:24] LABS: Calcium 8.5 MG/DL (8.5-10.1); Osmolality,Calculated 275.5 MOS/KG (273-304); Potassium 4.1 MMOL/L (3.5-5.1)
[2021-05-10 05:35] LABS: Basophils % 0.2 % (0.0-0.8); Hematocrit 29.2 VOL% (35.7-47.0); Immature Granulocytes % 0.3 %; Immature Granulocytes Absolute 0.02 #; Lymphocytes # 0.8 10*3/uL (1.4-4.0); Lymphocytes % 12.2 % (21.3-54.2); Mean Corpuscular HGB Conc 33.2 GM/DL (32-36); Mean Platelet Volume 10.8 FL (9.6-12.0); Monocytes % 7.9 % (1.7-12.7); Neutrophils % 79.4 % (38.7-73.9); Platelet Count 156 T/CUMM (130-400); Red Cell Distribution Width 13.6 % (9.3-17.3); White Blood Count 6.6 T/CUMM (4-12)
[2021-05-10 05:37] LABS: Hemoglobin 9.7 GM/DL (12.0-16.0); Red Blood Count 2.89 MC/CUMM (3.8-5.5)
[2021-05-10] MEDS: ENTACAPONE 200 MG TABLET PO SCH ×4 (06:15→20:13)
[2021-05-10] MEDS: CARBIDOPA/LEVODOPA 25-100 MG TABLET PO SCH ×3 (06:15→15:41)
[2021-05-10] MEDS: ASPIRIN EC 81 MG TABLET PO SCH (08:35)
[2021-05-10] MEDS: PANTOPRAZOLE 40 MG TABLET PO SCH (08:35)
[2021-05-10] MEDS: METOPROLOL TARTRATE 25 MG TABLET PO SCH ×2 (08:35→20:13)
[2021-05-10] MEDS: PARoxetine 10 MG TABLET PO SCH ×2 (10:27→15:41)
[2021-05-10] MEDS: POLYETHYLENE GLYCOL POWDER 17 GM PACK PO SCH (10:27)
[2021-05-10] MEDS: oxyCODONE/ACETAMINOPHEN 5-325 MG TABLET PO PRN ×2 (14:02→19:33)
[2021-05-10] MEDS: ENOXAPARIN 40 MG/0.4 ML SYRINGE SUBCUT SCH (15:42)
[2021-05-10] MEDS ORDERED: guaiFENesin 200 MG/10 ML UDCUP PO PRN (17:14)
[2021-05-10] MEDS: LORazepam 0.5 MG TABLET PO PRN (17:47)
[2021-05-10] MEDS: CARBIDOPA/LEVODOPA CR 25-100 MG TABLET PO SCH (20:13)
[2021-05-10] MEDS: OLANZapine 2.5 MG TABLET PO SCH (20:13)
[2021-05-11] MEDS: SODIUM CHLORIDE 0.9% 1,000 ML IV SCH ×2 (02:45→19:14)
[2021-05-11 04:57] LABS: Basophils % 0.2 % (0.0-0.8); Eosinophils # 0.1 10*3/uL (0.0-0.87); Eosinophils % 1.5 % (0.00-10.9); Hemoglobin 8.1 GM/DL (12.0-16.0); Immature Granulocytes % 0.4 %; Immature Granulocytes Absolute 0.02 #; Lymphocytes # 1.1 10*3/uL (1.4-4.0); Lymphocytes % 19.4 % (21.3-54.2); Mean Corpuscular HGB Conc 32.4 GM/DL (32-36); Mean Corpuscular Volume 102.5 FL (87-102); Mean Platelet Volume 11.3 FL (9.6-12.0); Monocytes % 6.7 % (1.7-12.7); Neutrophils % 71.8 % (38.7-73.9); Platelet Count 134 T/CUMM (130-400); Red Blood Count 2.44 MC/CUMM (3.8-5.5); Red Cell Distribution Width 13.7 % (9.3-17.3); White Blood Count 5.5 T/CUMM (4-12)
[2021-05-11 05:02] LABS: Hypochromasia 1+; Microcytosis 1+; Platelet Estimate Normal
[2021-05-11] MEDS: ENTACAPONE 200 MG TABLET PO SCH ×4 (06:19→20:15)
[2021-05-11] MEDS: LORazepam 0.5 MG TABLET PO PRN ×2 (06:19→15:12)
[2021-05-11] MEDS: CARBIDOPA/LEVODOPA 25-100 MG TABLET PO SCH ×3 (06:19→14:31)
[2021-05-11] MEDS: ASPIRIN EC 81 MG TABLET PO SCH (08:16)
[2021-05-11] MEDS: PANTOPRAZOLE 40 MG TABLET PO SCH (08:16)
[2021-05-11] MEDS: METOPROLOL TARTRATE 25 MG TABLET PO SCH ×2 (08:16→20:15)
[2021-05-11] MEDS: PARoxetine 10 MG TABLET PO SCH ×2 (10:51→14:32)
[2021-05-11] MEDS: CLOPIDOGREL 75 MG TABLET PO SCH (10:51)
[2021-05-11] MEDS: POLYETHYLENE GLYCOL POWDER 17 GM PACK PO SCH (10:51)
[2021-05-11] MEDS: ENOXAPARIN 40 MG/0.4 ML SYRINGE SUBCUT SCH (14:31)
[2021-05-11 16:11] LABS: Hematocrit 22.6 VOL% (35.7-47.0); Hemoglobin 7.2 GM/DL (12.0-16.0)
[2021-05-11] MEDS ORDERED: SODIUM CHLORIDE 0.9% 1,000 ML IV PRN (16:45)
[2021-05-11] MEDS ORDERED: MELATONIN 3 MG TABLET PO PRN (20:06)
[2021-05-11] MEDS: CARBIDOPA/LEVODOPA CR 25-100 MG TABLET PO SCH (20:15)
[2021-05-11] MEDS: oxyCODONE/ACETAMINOPHEN 5-325 MG TABLET PO PRN (20:15)
[2021-05-11] MEDS: OLANZapine 2.5 MG TABLET PO SCH (20:15)
[2021-05-12 05:06] LABS: Basophils % 0.2 % (0.0-0.8); Eosinophils # 0.1 10*3/uL (0.0-0.87); Hematocrit 22.1 VOL% (35.7-47.0); Hemoglobin 7.2 GM/DL (12.0-16.0); Immature Granulocytes % 0.5 %; Immature Granulocytes Absolute 0.03 #; Lymphocytes % 17.9 % (21.3-54.2); Mean Corpuscular HGB Conc 32.6 GM/DL (32-36); Mean Corpuscular Volume 100.9 FL (87-102); Mean Platelet Volume 10.4 FL (9.6-12.0); Monocytes % 8.2 % (1.7-12.7); Neutrophils % 71.2 % (38.7-73.9); Platelet Count 147 T/CUMM (130-400); Red Blood Count 2.19 MC/CUMM (3.8-5.5); Red Cell Distribution Width 13.6 % (9.3-17.3); White Blood Count 5.5 T/CUMM (4-12)
[2021-05-12 05:11] LABS: Hemoglobin 7.4 GM/DL (12.0-16.0)
[2021-05-12] MEDS ORDERED: SODIUM CHLORIDE 0.9% 1,000 ML IV PRN (06:46)
[2021-05-12] MEDS: CARBIDOPA/LEVODOPA 25-100 MG TABLET PO SCH ×3 (07:41→14:21)
[2021-05-12] MEDS: ENTACAPONE 200 MG TABLET PO SCH ×4 (07:41→20:22)
[2021-05-12] MEDS: ASPIRIN EC 81 MG TABLET PO SCH (09:26)
[2021-05-12] MEDS: METOPROLOL TARTRATE 25 MG TABLET PO SCH ×2 (09:26→20:21)
[2021-05-12] MEDS: PANTOPRAZOLE 40 MG TABLET PO SCH (09:26)
[2021-05-12] MEDS ORDERED: MENTHOL/ZINC OXIDE OINT 71 GM JAR TOP PRN (11:47)
[2021-05-12] MEDS: POLYETHYLENE GLYCOL POWDER 17 GM PACK PO SCH (12:25)
[2021-05-12] MEDS: CLOPIDOGREL 75 MG TABLET PO SCH (12:26)
[2021-05-12] MEDS: PARoxetine 10 MG TABLET PO SCH ×2 (12:27→14:22)
[2021-05-12] MEDS ORDERED: METOPROLOL TARTRATE 25 MG TABLET PO ONE (12:30)
[2021-05-12] MEDS: LORazepam 0.5 MG TABLET PO PRN (13:43)
[2021-05-12] MEDS: ENOXAPARIN 40 MG/0.4 ML SYRINGE SUBCUT SCH (14:22)
[2021-05-12 19:10] LABS: Hematocrit 32.9 VOL% (35.7-47.0)
[2021-05-12] MEDS: OLANZapine 2.5 MG TABLET PO SCH (20:21)
[2021-05-12] MEDS: CARBIDOPA/LEVODOPA CR 25-100 MG TABLET PO SCH (20:22)
[2021-05-13 06:14] LABS: Basophils % 0.1 % (0.0-0.8); Eosinophils # 0.1 10*3/uL (0.0-0.87); Eosinophils % 1.3 % (0.00-10.9); Hematocrit 35.6 VOL% (35.7-47.0); Hemoglobin 11.6 GM/DL (12.0-16.0); Immature Granulocytes % 0.4 %; Immature Granulocytes Absolute 0.03 #; Lymphocytes # 1.3 10*3/uL (1.4-4.0); Lymphocytes % 15.7 % (21.3-54.2); Mean Corpuscular HGB Conc 32.6 GM/DL (32-36); Mean Platelet Volume 10.6 FL (9.6-12.0); Monocytes % 7.6 % (1.7-12.7); Neutrophils % 74.9 % (38.7-73.9); Platelet Count 191 T/CUMM (130-400); Red Blood Count 3.71 MC/CUMM (3.8-5.5); Red Cell Distribution Width 16.8 % (9.3-17.3); White Blood Count 8.3 T/CUMM (4-12)
[2021-05-13] MEDS: CARBIDOPA/LEVODOPA 25-100 MG TABLET PO SCH ×2 (06:24→11:08)
[2021-05-13] MEDS: ENTACAPONE 200 MG TABLET PO SCH ×2 (06:25→11:08)
[2021-05-13 06:34] LABS: Albumin 2.4 G/DL (3.4-5.0); Bilirubin,Total 1.2 MG/DL (0.20-1.00); Calcium 8.6 MG/DL (8.5-10.1); Osmolality,Calculated 275.5 MOS/KG (273-304); Total Protein 5.9 G/DL (6.4-8.2)
[2021-05-13] MEDS: ASPIRIN EC 81 MG TABLET PO SCH (09:19)
[2021-05-13] MEDS: METOPROLOL TARTRATE 25 MG TABLET PO SCH (09:20)
[2021-05-13] MEDS: PANTOPRAZOLE 40 MG TABLET PO SCH (09:20)
[2021-05-13] MEDS: POLYETHYLENE GLYCOL POWDER 17 GM PACK PO SCH (11:08)
[2021-05-13] MEDS: PARoxetine 10 MG TABLET PO SCH (11:08)
[2021-05-13] MEDS: CLOPIDOGREL 75 MG TABLET PO SCH (11:08)
[2021-05-13 12:06] VITALS: BP 125/61
== END 2021-05-13 14:49 | disposition home health service (06) | DRG 481 ==
LOC: EDBD → EDUNIT# → N.ED 12:49 → N.EDINP 14:39 → SUATTDRO 14:39 → N.3E 15:32
PROVIDERS: ADMIT Emergency Medicine; ATTEND Internal Medicine Geriatric Medicine